=== PATIENT | male | born 1970 | race Caucasian/White ===

== ENCOUNTER 2019-08-08 08:53 | Outpatient (CLI) | payer OTHER, SELFPAY ==
--- NOTE | 2019-08-08 09:00 | CT_ITS ---
WS: [id number] CT scan of the chest With IV contrast, CT scan of the abdomen and pelvis with IV contrast and with oral contrast. Additional two-dimensional coronal and sagittal reconstruction was performed. 0 Clinical Data: ASCENDING COLON CANCER Comparison: CT chest, 08/31/2018, CT chest abdomen and pelvis, 02/09/2018. DLP: 2140.[address] scans at [facility] use at least one of these dose optimization techniques: automat ed exposure control; mA and/or kV adjustment per patient size (includes targeted exams where dose is matched to clinical indication); or iterative reconstruction. Findings: Chest: No nodules, masses or effusions are seen. There are lymph nodes in the subcarinal area unchanged. The lymph node adjacent to the left pulmonary artery is unchanged in size. No new adenopathy is seen. The heart size is normal with no pericardial effusion. Trachea bifurcates normally into the bronchi. The pulmonary arterial system and thoracic aorta demonstrate no abnormalities or dilatations. The com plete loss of vertebral body height at T10 remains the same. Abdomen/pelvis: . The liver, gallbladder, spleen, adrenal glands and pancreas are normal. The kidneys show equal bilateral contrast excretion with no cyst or masses. The abdominal aorta is normal in size. No appendicitis or diverticulitis is seen. No abscess, adenopathy, ascites, mass, obstruction or free air is seen. Oral contrast is in the stomach and small bowel and there is no bowel dilatation. The p atient has had a right hemicolectomy. The bladder is unremarkable. No inguinal hernia is seen. The prostate is enlarged with calcification. The vas deferens is calcified. The bones of the lumbar spine, pelvis, and hips are normal. CT/CT chest abd pel w con* Impression: 1. Negative for new mediastinal or subcarinal adenopathy. 2. Negative for metastatic disease. 3. No change in vertebral body collapse T10 and right hemicolectomy. 4. No acute cardiopulmonary or abdominal pelvic disease is seen.
[2019-08-08] MEDS: iohexol 300 mg/mL 50 mL Btl IV (09:03)
[2019-08-08] MEDS: iohexol 300 mg/mL 100 mL Btl IV (10:54)
[2019-08-08 11:16] LABS: Basophils # 0.1 10^3/uL (0.0-0.1); Basophils % 1.4 %; Eosinophils # 0.3 10^3/uL (0.0-0.8); Eosinophils % 3.3 %; Hematocrit 50.5 % (42.0-52.0); Hemoglobin 16.8 g/dL (11.7-16.6); Lymphocytes # 2.4 10^3/uL (0.8-4.8); Lymphocytes % 30.7 %; Mean Corpuscular HGB Conc 33.3 g/dL (30.0-36.0); Mean Corpuscular Hemoglobin 30.7 pg (28.0-34.0); Mean Corpuscular Volume 92.2 fL (80-94); Mean Platelet Volume 10.4 fL (7.4-10.4); Monocytes # 0.8 10^3/uL (0.2-0.9); Monocytes % 9.5 %; Neutrophils # 4.3 10^3/uL (1.8-7.7); Neutrophils % 54.8 %; Nucleated Red Blood Cells % 0 %; Platelet Count 216 10^3/cmm (130-400); Red Blood Count 5.48 10^6/uL (4.1-5.3); Red Cell Distribution Width 12.5 % (12.1-15.1); White Blood Count 7.9 10^3/uL (4.0-10.0)
[2019-08-08 11:40] LABS: Carcinoembryonic Antigen 1.6 ng/mL (0.0-4.7)
[2019-08-08 11:53] LABS: Alanine Aminotransferase 31 U/L (0-41); Albumin Level 4.7 g/dL (3.5-5.2); Alkaline Phosphatase 80 IU/L (40-130); Anion Gap 18.3 (5-19); Blood Urea Nitrogen 13 mg/dL (6-20); Calcium 9.9 mg/Dl (8.6-10.0); Carbon Dioxide 26 mmol/L (22-29); Chloride 101 mmol/L (98-107); Globulin 3.1 g/dL (1.3-4.6); Glomerular Filtration Rate 103.2 mL/min (90-130); Glucose 101 mg/dL (74-109); Potassium 4.3 mmol/L (3.5-5.1); Sodium 141 mmol/L (136-145); Total Bilirubin 0.5 mg/dL (0.15-1.2); Total Protein 7.8 g/dL (6.6-8.7)
[2019-08-08 11:54] LABS: Aspartate Amino Transferase 28 U/L (0-40)
== END 2019-08-08 08:54 | disposition home or self-care (01) ==
PROVIDERS: Family Provider Nurse Practitioner; Visit Provider Internal Medicine Medical Oncology
DX: C18.2 Malignant neoplasm of ascending colon (principal); Z90.49 Acquired absence of other specified parts of digestive tract
CPT/HCPCS: 71260; 74177; 80053; 82378; 85025

== ENCOUNTER 2019-08-12 08:13 | Outpatient (CLI) | payer OTHER, SELFPAY ==
--- NOTE | 2019-08-12 20:33 | ONC FU_ITS ---
Dr. Bah Patient Follow-Up Note Patient: Daniel Staley Unit #: [id number]: 1970 Dicatated By: Kendell Bah M.D.Date of Visit:Aug 12, 2019 Onc Med Follow-up/Prog Note Chief Complaint: Colon cancer. History of Present Illness: This is a 48 year-old man with moderately differentiated adenocarcinoma of the cecum, stage IIIB (T3, N2b, M0). He had presented with a one month history of abdominal pain and constipation. A CAT scan of abdomen/pelvis on 05/21/2012 showed a small bowel and right colon abnormal appearance. He also had significant abdominal lymphadenopathy. Colonoscopy on 05/24/2012 showed cecal nonobstructive ulcerated mass, on pathology consistent with moderately differentiated infiltrating adenocarcinoma. Pre-operative CEA was 2.4. On 05/31/2012 he underwent right hemicolectomy by Dr. Judd. His surgical pathology revealed a 4.5 cm moderately differentiated adenocarcinoma. Lymphovascular invasion was present. There was involvement in 11 of 15 lymph nodes. PET/CT on 06/22/2012 showed no evidence of distant metastatic disease. His disease was thus stage IIIB (T3, N2b, M0). He received adjuvant chemotherapy with XELOX regimen from 06/28/2012 thru 11/29/2012. The infusion of oxaliplatin resulted in bilateral thrombophlebitis and significant peripheral vein irritation. Port-A-Cath was placed on 07/12/2012. With cycle 7 he had a severe reaction to oxaliplatin with bronchospasm, and further oxaliplatin was discontinued. His treatment was complicated with grade [address] after completion of his treatment on 12/20/2012 showed no evidence of recurrence. CEA 0.7 on 12/27/2012. Port was removed on 01/04/2013. Surveillance colonoscopy at 1 year was negative for malignancy. His medical history is otherwise unremarkable. His prior medical illnesses have been limited to allergic rhinitis. He is a nonsmoker. He does not drink alcohol. INTERIM HISTORY: Surveillance CT of the abdomen/pelvis on 02/14/2017 showed no evidence for recurrent or metastatic disease. There was evidence of severe compression deformity of the T10 vertebral body, unchanged compared to previous studies. His surveillance CT scans on 02/09/2018 showed new subcentimeter mediastinal and hilar lymph nodes and subsegmental atelectasis along the minor fissure. There was only a slight increase in the size and number of lymph nodes from the previous study. A 2 mm nodule in the right posterior upper lobe appeared stable. There was no evidence of recurrent or metastatic disease in the abdomen/pelvis. He continued observation/expectant management. A repeat chest CT on 08/31/2018 showed stable mediastinal and hilar lymph nodes. There was no evidence of metastatic disease. Surveillance CT scans on 08/08/2019 showed no evidence of metastatic disease in the chest, abdomen, or pelvis. There was no change noted in the mediastinal lymph nodes and no change in the appearance of the T10 vertebral body compression. He is seen for a scheduled visit. He has been feeling pretty good generally, though his blood pressure has been running a little high, and they have been checking it at home. Within the past 2 to 3 months he had a flareup of back pain. The pain, though, is in the left lower back/sciatic area, and it radiates down the left leg. He also has been having some pain on the bottom of his left foot. His still working and doing all of his normal activities. He has good appetite. He has no fever or night sweats. He has no shortness of breath, cough, or chest pain. He has no GI complaints other than occasional heartburn. He does not have very good pressure when he voids, but bladder function is otherwise okay. He has no other joint or bone pain. He still has some numbness in his toes from the chemotherapy. Medications: Rhinocort Allergy 1 [place](s) (of 32 mcg/act) Suspension Nasal daily, Singulair 1 Tablet (of 10 mg) Oral daily Allergies: Oxaliplatin Review of Systems: Constitutional - His energy is pretty good generally. He has normal activity, other than his recent back pain. His appetite is good his and weight is stable. No fever, chills, hot flashes, or night sweats. ECOG score is 0, ENMT - He has sinus congestion/drainage. No mouth sores. No sore throat or difficulty swallowing, Hematologic/Lymphatic - No abnormal bruising or bleeding, Respiratory - No shortness of breath. No cough. No pleuritic pain or hemoptysis, Cardiovascular - No angina pain. No palpitations, Gastrointestinal - No nausea or vomiting. He has occasional heartburn. No diarrhea or constipation. No blood in the stool or black stools, Genitourinary (M) - He doesn't have very good pressure, but that isn't new. No dysuria or hematuria. No urinary frequency. No urgency or incontinence, Musculoskeletal - He has lower back pain on the left side. It started getting worse about 2 months ago. It radiates down the left leg. He also has pain on the bottom of his left foot, Integumentary - No skin complications, Neurologic - No headache or dizziness. He has some numbness and tingling in his toes, Psychiatric - No anxiety or depression. No insomnia. Vital Signs: Performed on Aug 12, 2019 08:28 Height - 67.00 in Weight - 209.8 lbs (HIGH) BSA - 2.06 sq.m BMI - 32.86 (HIGH) Temperature - 97.5 F (LOW) Pulse - 79 /min Respiration - 20 /min BP - 149/96 mm(hg) (HIGH) O2 Sat - 97 % Pain - 5 Physical Examination: Constitutional - He looks good generally, Eyes - Sclerae nonicteric. Conjunctivae clear, ENMT - No lesions noted in the oral cavity, Hematologic/Lymphatic - No cervical, clavicular, or axillary adenopathy, Respiratory - Lungs are clear with good air movement bilaterally, Cardiovascular - Heart ryhthm is regular. There is no murmur, gallop, or rub noted, Abdomen - Soft. Liver and spleen are not enlarged. There is no abdominal mass or ascites noted and there is no inguinal adenopathy, Extremities - No edema, Neurologic - No focal neurologic deficits noted. Lab/Imaging: Test performed on Aug 08, 2019 10:30 Glucose 101 mg/dL BUN 13 mg/dL Creatinine 0.8 mg/dL Cr Clearance (Est) 151.42 mL/min Sodium 141 mmol/L Potassium 4.3 mmol/L Chloride 101 mmol/L CO2 26 mmol/L Calcium 9.9 mg/dL Protein, Total 7.8 g/dL Albumin 4.7 g/dL Bilirubin, Total 0.5 mg/dL Alkaline Phosphatase 80 IU/L AST (SGOT) 28 IU/L ALT (SGPT) 31 IU/L WBC 7.9 10^9/L RBC 5.48 10^12/L HGB 16.8 g/dL HCT 50.5 % MCV 92.2 fl MCH 30.7 pg MCHC 33.3 g/dL RDW 12.5 % Platelet Count 216 10^9/L MPV 10.4 fL Neutrophils (Gran) 4.3 10^9/L Lymphocytes 2.4 10^9/L Monocytes 0.8 10^9/L Eosinophils 0.3 10^9/L Basophils 0.1 10^9/L Manual Lymphocytes 30.7 % Manual Monocytes 9.5 % Manual Eosinophils 3.3 % Manual Basophils 1.4 % NRBCs 0.0 /100 WBC CEA 1.6 ng/mL Impression: 1. Patient with moderately differentiated adenocarcinoma of the cecum, stage IIIB (T3, N2b, M0). 2. He underwent right hemicolectomy on 05/31/2012. 3. He was given adjuvant chemotherapy XELOX regimen from 06/28/12 thru 11/29/2012, complicated with grade 2 peripheral neuropathy. He has since then been followed on observation/expectant management. As of his follow-up visit in January 2018 he appeared stable clinically. There were new subcentimeter mediastinal and hilar lymph nodes evident on his CT scan in January 2018. These were felt to most likely be reactive. The lymph nodes appeared stable on a repeat chest CT in August 2018. His current CT scans show no evidence of metastatic disease. He has been having some pain in the left sciatic distribution, and he is planning to have that evaluated at the spine clinic in [place]. He has otherwise been stable from a symptomatic standpoint, but he has developed mild hypertension and he also had evidence of hyperlipidemia on his lipid profile and [place]. He has not had surveillance colonoscopy since 2013. Overall, though, he continues to do well clinically with no evidence of recurrence of the colon cancer. Plan: He will remain on observation/expectant management for the colon cancer. He will be referred to Dr. Judd for surveillance colonoscopy. He will continue his regular follow-up with Ld Ahmadi, and he is encouraged to follow through with her recommendations for treatment of the hypertension and hyperlipidemia. I would recommend that a yearly CEA level be included with his lab studies. However, he should not require any further CT scans for routine surveillance. I will just plan to see him again as needed. Signed By: Kendell Bah M.D. <<Signature on File>>
== END 2019-08-12 08:14 | disposition home or self-care (01) ==
LOC: ONCMED 08:17
PROVIDERS: Family Provider Nurse Practitioner; Visit Provider Internal Medicine Medical Oncology
DX: Z08 Encounter for follow-up examination after completed treatment for malignant neoplasm (principal); Z85.038 Personal history of other malignant neoplasm of large intestine; I10 Essential (primary) hypertension; E78.5 Hyperlipidemia, unspecified; M54.32 Sciatica, left side; Z92.21 Personal history of antineoplastic chemotherapy; Z90.49 Acquired absence of other specified parts of digestive tract
CPT/HCPCS: 99214

== ENCOUNTER 2019-09-19 06:38 | Day surgery (SDC) | payer OTHER, SELFPAY ==
[2019-09-18 09:56] VITALS: BMI 33.2
--- NOTE | 2019-09-19 06:53 | ANES.PREANE2 ---
Pre-Anesthetic Assessment Pre-Anesthetic Assessment: Height/Weight: Height 1.7 m Weight 96.162 kg Preop Diagnosis: hx colon ca Proposed Procedure: Operation Date: 09/19/19 08:00 Proposed Procedures p Colonoscopy(Not Applicable) - Po Judd MD Was Beta Pito taken within 24 hours: N/A Last Intake: 19:00 Social: Social History: No alcohol and No tobacco Exam: Pre-Anes Outpt Exam: alert, oriented x 3, clear to auscultation bilaterally and regular rate & rhythm Airway: Submandibular: WNL Cervical ROM: WNL MP: 2 Dentition: Caps History/ROS: No significant history except as noted Pulmonary: Comments: sinusitis medications CV/HEM: CV/HEM: HTN Comments: does not take his prescribed Lisinopril : : None reported Hepatic: Hepatic: None reported GI: GI: None reported Metabolic: Metabolic: None reported Musc/skel: Musc/skel: Lower Back Pain Neuropsych: Neuropsych: None reported Anesthetic Plan: ASA status: 2 Anesthesia: Anesthesia Evaluation and MAC Risk of > 500 ml blood loss (7ml/kg in children): No PFSH Anesthesia PFSH: Family History (Updated 09/18/19 @ 09:48 by Lorenza Verdugo, MAYLIN) Other Colon cancer Heart disease Social History (Updated 09/18/19 @ 09:51 by Lorenza Verdugo, MAYLIN) Smoking and tobacco status: former smoker Second hand smoke exposure: No Smoking risk assessment/counseling performed?: No Alcohol intake: current Alcohol intake frequency: few times a week Desire information about alcohol rehabilitation?: No Data Anesthesia Cardiac Studies: No Data to Display
[2019-09-19 06:54] VITALS: BP 155/107; PULSE 81; RESP 20; TEMP 36.2; O2SAT 97
[2019-09-19] MEDS: sodium chloride 0.9% 1,000 ML 30 ML (06:59)
--- NOTE | 2019-09-19 08:52 | W.PM.OPSUD ---
Surgery/Procedure H&P Update DATE OF PROCEDURE: September 19, 2019 DATE H&P PERFORMED: 08/27/19 PREOP DIAGNOSIS: hx colon ca PLANNED PROCEDURE: Operation Date: 09/19/19 08:00 Proposed Procedures p Colonoscopy(Not Applicable) - Po Judd MD
[2019-09-19 09:03] VITALS: BP 120/91; PULSE 85; RESP 16; TEMP 36.6; O2SAT 97
--- NOTE | 2019-09-19 09:12 | ANE.PACU2 ---
 Inpatient post-anesthesia follow up: Airway intact: Yes Vital signs: Temperature 97.8 F Pulse Rate 85 Respiratory Rate 16 Blood Pressure 120/91 Pulse Oximetry 97 Oxygen Delivery Me thod Nasal Cannula Oxygen Flow Rate 3 Fraction of Inspir ed Oxygen Hydration adequate: Yes Nausea and vomiting: No Mental status: Baseline
[2019-09-19 09:14] VITALS: BP 134/93; PULSE 93; RESP 18; O2SAT 96
== END 2019-09-19 09:33 | disposition home or self-care (01) ==
PROVIDERS: Family Provider Nurse Practitioner; PCP Nurse Practitioner; Visit Provider Surgery
PROC: 0DJD8ZZ Inspection of Lower Intestinal Tract, Via Natural or Artificial Opening Endoscopic (ICD-10-PCS; CPT 45378; principal; 2019-09-19 08:00)
DX: Z12.11 Encounter for screening for malignant neoplasm of colon (principal); K57.30 Diverticulosis of large intestine without perforation or abscess without bleeding; K64.8 Other hemorrhoids; Z82.49 Family history of ischemic heart disease and other diseases of the circulatory system; Z80.0 Family history of malignant neoplasm of digestive organs; Z85.038 Personal history of other malignant neoplasm of large intestine; I10 Essential (primary) hypertension; Z87.891 Personal history of nicotine dependence
CPT/HCPCS: 12345; 45378; J2001; J2704; J7030

== ENCOUNTER → 2020-03-12 15:34 | Outpatient (BNVA) | payer OTHER, SELFPAY | PROVIDERS: Family Provider Nurse Practitioner; PCP Nurse Practitioner; Visit Provider Nurse Practitioner Family | DX: I10 Essential (primary) hypertension (principal); M54.2 Cervicalgia | CPT/HCPCS: 80053; 80061; 84443; 84550; 85025 ==

== ENCOUNTER → 2020-04-09 16:31 | Outpatient (BNVA) | payer OTHER, SELFPAY | PROVIDERS: Family Provider Nurse Practitioner; PCP Nurse Practitioner; Visit Provider Nurse Practitioner Family | DX: R53.83 Other fatigue (principal); J30.89 Other allergic rhinitis; E78.5 Hyperlipidemia, unspecified; I10 Essential (primary) hypertension; G47.10 Hypersomnia, unspecified | CPT/HCPCS: 82306; 82607; 84403 ==

== ENCOUNTER → 2020-06-01 08:23 | Outpatient (BNVA) | payer OTHER, SELFPAY | PROVIDERS: Family Provider Nurse Practitioner; PCP Nurse Practitioner; Referring Provider Nurse Practitioner Family; Visit Provider Urology | DX: R79.89 Other specified abnormal findings of blood chemistry (principal); Z12.5 Encounter for screening for malignant neoplasm of prostate | CPT/HCPCS: 84403; G0103 ==

== ENCOUNTER → 2020-08-10 14:19 | Outpatient (BNVA) | payer OTHER, SELFPAY | PROVIDERS: Family Provider Nurse Practitioner; PCP Nurse Practitioner; Visit Provider Nurse Practitioner Family | DX: R50.9 Fever, unspecified (principal); Z20.828 Contact with and (suspected) exposure to other viral communicable diseases | CPT/HCPCS: 87400; 87635 ==

== ENCOUNTER → 2020-08-20 10:01 | Outpatient (BNVA) | payer OTHER, SELFPAY | PROVIDERS: Family Provider Nurse Practitioner; PCP Nurse Practitioner; Visit Provider Nurse Practitioner Family | DX: Z20.828 Contact with and (suspected) exposure to other viral communicable diseases (principal) | CPT/HCPCS: 87635 ==

== ENCOUNTER → 2020-08-25 11:00 | Outpatient (BNVA) | payer OTHER, SELFPAY | PROVIDERS: Family Provider Nurse Practitioner; PCP Nurse Practitioner; Visit Provider Nurse Practitioner Family | DX: Z20.828 Contact with and (suspected) exposure to other viral communicable diseases (principal) | CPT/HCPCS: 87635 ==

== ENCOUNTER → 2020-12-02 16:37 | Outpatient (BNVA) | payer OTHER, SELFPAY | PROVIDERS: Family Provider Nurse Practitioner; PCP Nurse Practitioner; Visit Provider Nurse Practitioner | DX: I10 Essential (primary) hypertension (principal); E55.9 Vitamin D deficiency, unspecified; E78.5 Hyperlipidemia, unspecified; K59.00 Constipation, unspecified | CPT/HCPCS: 74018; 80053; 80061; 82306; 85025 ==

== ENCOUNTER → 2021-05-07 09:47 | Outpatient (BNVA) | payer OTHER, SELFPAY | PROVIDERS: Family Provider Nurse Practitioner; PCP Nurse Practitioner; Visit Provider Nurse Practitioner | DX: I10 Essential (primary) hypertension (principal) | CPT/HCPCS: 80053; 80061; 81000 ==

== ENCOUNTER → 2022-09-09 15:18 | Outpatient (BNVA) | payer OTHER, SELFPAY | PROVIDERS: Family Provider Nurse Practitioner; PCP Nurse Practitioner; Visit Provider Nurse Practitioner Family | DX: J02.9 Acute pharyngitis, unspecified (principal) | CPT/HCPCS: 87071; 87880 ==

== ENCOUNTER → 2022-09-27 15:50 | Outpatient (BNVA) | payer OTHER, SELFPAY | PROVIDERS: Family Provider Nurse Practitioner; PCP Nurse Practitioner; Visit Provider Nurse Practitioner | DX: J30.89 Other allergic rhinitis (principal); I10 Essential (primary) hypertension; J45.909 Unspecified asthma, uncomplicated; J98.01 Acute bronchospasm; E78.5 Hyperlipidemia, unspecified | CPT/HCPCS: 80053; 80061; 83036; 85025 ==

== ENCOUNTER 2022-10-13 07:51 | Outpatient (CLI) | payer OTHER, SELFPAY ==
--- NOTE | 2022-10-13 08:02 | CTR_ITS ---
PROCEDURE INFORMATION: Exam: CT Neck With Contrast Exam date and time: 10/13/2022 8:32 AM Age: 52 years old Clinical indication: Pain; Other: Otalgia, unspecified ear TECHNIQUE: Imaging protocol: Computed tomography of the neck with contrast. Radiation optimization: All CT scans at this facility use at least one of these dose optimization techniques: automated exposure control; mA and/or kV adjustment per patient size (includes targeted exams where dose is matched to clinical indication); or iterative reconstruction. Contrast material: OMNI 350; Contrast volume: 100 ml; Contrast route: INTRAVENOUS (IV); REPORTING DATA: Count of CT and Cardiac NM exams in prior 12 months: This patient has received 0 known CTs and 0 known cardiac nuclear medicine studies in the 12 months prior to the current study. COMPARISON: CT chest abdpel w/*[id number] 08/08/2019 11:05 AM RADIATION DOSE METRICS: Total DLP (mGy-cm): 234.81 FINDINGS: Brain: The visible portion of the brain is unremarkable. Mastoid air cells: The mastoid air cells are clear. Auditory system: The external auditory canals are normal bilaterally. Middle ears are clear. Paranasal sinuses: The maxillary sinuses contain mucous retention cysts. There is no mucosal thickening. No air-fluid levels. Pharynx: The nasopharynx is unremarkable. There is no significant pharyngeal tonsillar enlargement. The oropharynx is unremarkable. There is no significant palatine tonsillar enlargement. The hypopharynx is unremarkable. There is no significant lingual tonsillar enlargement. Larynx: The larynx and epiglottis are normal. Prevertebral and retropharyngeal spaces: There is no fluid or edema in the retropharyngeal space. Salivary glands: The parotid glands are normal. The submandibular glands are normal. Thyroid: The thyroid gland is unremarkable. Lymph nodes: There is no cervical or supraclavicular lymphadenopathy. Trachea: The visible portion of the trachea is normal. Lungs: Lung apices are clear. Bones/joints: The visible portion of the skull is intact. Cervical spine and thoracic inlet are unremarkable. No visible spinal stenosis. Vasculature: The carotid and vertebral arteries are unremarkable as visualized. Jugular veins are patent bilaterally. Right is relatively large. There is dehiscence of the jugular bulb on the right. See axial series 3, image 21, sagittal series 7, image 63 and coronal series 6, image 64. The right jugular bulb does not contact the tympanic membrane or ossicles. Soft tissues: Musculature in the neck is unremarkable. No soft tissue edema. CT/CT neck w con* [id number] IMPRESSION: Dehiscent jugular bulb on the right.
[2022-10-13] MEDS: iohexol 350 mg/mL 500 mL Btl (per mL) IV (08:15)
== END 2022-10-13 07:52 | disposition home or self-care (01) ==
PROVIDERS: PCP Nurse Practitioner; Visit Provider Specialist
DX: H92.09 Otalgia, unspecified ear (principal)
CPT/HCPCS: 70491; Q9967

== ENCOUNTER 2022-10-17 16:42 | Outpatient (CLI) | payer OTHER, SELFPAY ==
[2022-10-17 17:44] LABS: Basophils # 0.1 10^3/uL (0.0-0.1); Eosinophils # 0.4 10^3/uL (0.0-0.8); Eosinophils % 4.1 %; Lymphocytes # 3.6 10^3/uL (0.8-4.8); Lymphocytes % 33.9 %; Mean Corpuscular HGB Conc 33.3 g/dL (30.0-36.0); Mean Corpuscular Hemoglobin 30.1 pg (28.0-34.0); Mean Corpuscular Volume 90.4 fl (80-94); Mean Platelet Volume 9.8 fL (7.4-10.4); Monocytes # 1.2 10^3/uL (0.2-0.9); Neutrophils # 5.23 10^3/uL (1.8-7.7); Neutrophils % 49.8 %; Nucleated Red Blood Cells % 0 %; Platelet Count 217 10^3/cmm (130-400); Red Blood Count 5.31 10^6/uL (4.1-5.3); Red Cell Distribution Width 12.9 % (12.1-15.1); White Blood Count 10.5 10^3/uL (4.0-10.0)
[2022-10-17 18:06] LABS: Blood Urea Nitrogen 16 mg/dL (6-20); Calcium 8.7 mg/dL (8.5-10.5); Carbon Dioxide 24 mmol/L (22-29); Chloride 102 mmol/L (98-107); Glomerular Filtration Rate 88.6 mL/min (90-130); Glucose 111 mg/dL (65-115); Osmolality Calculated 288 mOsm/kg (285-295); Sodium 138 mmol/L (136-145)
--- NOTE | 2022-10-17 18:14 | ECG_ITS ---
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 Measurements Intervals [place] Rate: 88 P: 42 [place]: 178 QRS: -3 QRSD: 102 T: 29 QT: 341 QTc: 413 Interpretive Statements SINUS RHYTHM No previous ECG available for comparison Electronically Signed On 10-17-2022 19:29:54 CDT by Louie Lamb M.D. [email or web address]
== END 2022-10-17 16:43 | disposition home or self-care (01) ==
PROVIDERS: PCP Nurse Practitioner; Visit Provider Family Medicine
DX: H92.09 Otalgia, unspecified ear (principal)
CPT/HCPCS: 36415; 80048; 85025; 93005

== ENCOUNTER → 2023-06-29 10:52 | Outpatient (BNVA) | payer OTHER, SELFPAY | PROVIDERS: PCP Nurse Practitioner; Visit Provider Nurse Practitioner Family | DX: J98.8 Other specified respiratory disorders (principal) | CPT/HCPCS: 71046; 85025 ==

== ENCOUNTER 2023-07-14 06:12 | Outpatient (CLI) | payer OTHER, SELFPAY ==
--- NOTE | 2023-07-14 06:30 | USCV_ITS ---
Daniel Staley Age: 52 Gender: M : 1970 Exam Date: 07/14/2023 06:35 Ordering Phys: Celia Powell CLINICAL COUNSELOR-C Technologist: Mina Huffman Exam Location: [facility] [place] Indication: cardiomyopathy BP: 136 / 88 HR: 91 Rhythm: Sinus Technical Quality: Adequate MEASUREMENTS (Male / Female) Normal Values 2D ECHO LVOT Diameter 2.0 cm LV Ejection Fraction MOD 2C 66.9 % LV Ejection Fraction 2C AL 66.2 % LA Diameter 3.4 cm LA Width 3.1 cm LA Height 4.2 cm RA Width 2.7 cm RA Height 3.9 cm Aorta at Sinotubular Diameter 2.5 cm IVC Diameter 1.9 cm M-MODE Aortic Annulus Diameter 2.9 cm LA Ao Ratio MM 1.2 MV E Point Septal Separation 0.3 cm DOPPLER AV Peak Velocity 153.0 cm/s LVOT Peak Velocity 117.0 cm/s AV Area Cont Eq vti 2.6 cm squared AV Area Cont Eq pk 2.4 cm squared MV Peak Velocity 103.0 cm/s MV Area PHT 5.8 cm squared Mitral E to A Ratio 1.1 MV E' Velocity 47.0 cm/s Mitral E to MV E' Ratio 9.2 Mitral E to LV E' Lateral Ratio 8.1 Mitral E to LV E' Septal Ratio 10.6 TR Peak Velocity 193.4 cm/s TR Peak Gradient 15.0 mmHg TR Mean Velocity 149.1 cm/s TR Mean Gradient 10.6 mmHg TR Velocity Time Integral 32.8 cm Right Atrial Pressure 3.0 mmHg Pulmonary Artery Systolic Pressu 18.0 mmHg PV Peak Velocity 153.8 cm/s RV Acceleration Time 0.1 s RV Ejection Time 0.2 s RV AcT/ET 0.5 FINDINGS Left Ventricle Left ventricle is normal size. LV systolic function is normal with EF of 55 to 60%. No regional wall motion abnormalities are seen. Right Ventricle Normal in size and function Right Atrium Normal in size Left Atrium Normal in size Mitral Valve Structurally normal mitral valve. Mild mitral regurgitation. Aortic Valve Structurally normal aortic valve. No significant stenosis or regurgitation. Tricuspid Valve Mild tricuspid regurgitation. Insufficient TR jet to calculate RVSP. Pulmonic Valve Not well-visualized Pericardium Normal Aorta Normal in size IVC Appears to be normal CONCLUSIONS LV systolic function is normal with EF of 55 to 60%. Mild mitral regurgitation Mild tricuspid regurgitation No comparison studies are available Louie Lamb MD (Electronically Signed) Final Date: 15 July 2023 13:27 S
== END 2023-07-14 06:13 | disposition home or self-care (01) ==
LOC: RAD 06:13
PROVIDERS: PCP Nurse Practitioner Family; Visit Provider Nurse Practitioner Family
DX: I42.9 Cardiomyopathy, unspecified (principal); I08.1 Rheumatic disorders of both mitral and tricuspid valves
CPT/HCPCS: 93306

== ENCOUNTER → 2023-07-27 16:10 | Outpatient (BNVA) | payer OTHER, SELFPAY | PROVIDERS: PCP Nurse Practitioner Family; Visit Provider Nurse Practitioner Family | DX: R05.9 Cough, unspecified (principal); J45.901 Unspecified asthma with (acute) exacerbation | CPT/HCPCS: 71046 ==

== ENCOUNTER 2023-11-17 13:48 | Outpatient (CLI) | payer OTHER, SELFPAY ==
--- NOTE | 2023-11-17 15:15 | CT_ITS ---
WS: [id number] CT CHEST, ABDOMEN AND PELVIS WITH CONTRAST HISTORY: Z85.038 - Personal history of other malignant neoplasm, history of partial colectomy. Prior appendectomy and cholecystectomy. TECHNIQUE: Contiguous 5 mm axial imaging performed through the chest, abdomen and pelvis with IV cont rast, oral contrast has been provided. Coronal and sagittal reformats chest. Coronal and sagittal ref ormats through the abdomen and pelvis. All CT scans at [facility] use at least one of these d ose optimization techniques: automated exposure control; mA and/or kV adjustment per patient size (in cludes targeted exams where dose is matched to clinical indication); or iterative reconstruction. CONTRAST: Omnipaque 350; 100 mL IV. DLP: 1311.67 mGy.cm COMPARISON: 08/08/[address]: Lungs are well-aerated. No mass or pneumonia. No pericardial or pleural effusion. Heart is normal size. Lymph node with calcification measures 10 mm along the proximal RIGHT lower lobe bronchu s. No enlarging or new lymph nodes. Small bilateral hilar and para-aortic lymph node. Patient has a k nown 20% biconcave deformity at T10 with lytic changes. No change since 08/08/2019. This may be a reji vertebrae, congenital malformation. Abdomen CT: Normal size liver and spleen. No bile duct dilatation. Normal portal vein. Normal gallbla dder and adrenal glands. Normal pancreas. Mild atherosclerosis aorta. Retroaortic LEFT renal vein. No rmal kidneys. Ventral abdominal wall hernia contains fat only. Stomach is well distended with oral contrast. No small bowel obstruction. RIGHT colectomy. No recurre nt mass at the anastomosis. There are a few scattered diverticula in the distal colon. No acute diver ticulitis. No ascites. No adenopathy. Pelvic CT: Normally distended urinary bladder. Mild prostate gland enlargement into the bladder. Bila teral inguinal canals are patent containing fat only. No new lytic or sclerotic bone lesions. Mild cam deformities at each hip. IMPRESSION: 1. No metastatic disease within the lungs. 2. No adenopathy within the chest, abdomen or pelvis. 3. Status post RIGHT colectomy. No recurrent mass at the anastomosis. 4. No hepatic or adrenal metastasis. 5. No pneumonia. 6. Small ventral abdominal wall hernia.
[2023-11-17] MEDS: iohexol 350 mg/mL 500 mL Btl (per mL) PO (15:25)
[2023-11-17] MEDS: iohexol 350 mg/mL 500 mL Btl (per mL) IV (15:25)
== END 2023-11-17 13:49 | disposition home or self-care (01) ==
LOC: RAD 13:48
PROVIDERS: PCP Nurse Practitioner Family; Visit Provider Nurse Practitioner
DX: Z85.038 Personal history of other malignant neoplasm of large intestine (principal); K43.9 Ventral hernia without obstruction or gangrene; Z90.49 Acquired absence of other specified parts of digestive tract
CPT/HCPCS: 71260; 74177; Q9967

== ENCOUNTER → 2024-02-08 08:08 | Outpatient (BNVA) | payer OTHER, SELFPAY | PROVIDERS: PCP Nurse Practitioner Family; Visit Provider Nurse Practitioner | DX: I10 Essential (primary) hypertension (principal); Z12.5 Encounter for screening for malignant neoplasm of prostate | CPT/HCPCS: 80053; 80061; 84443; G0103 ==

== ENCOUNTER → 2024-08-30 08:31 | Outpatient (BNVA) | payer OTHER, SELFPAY | PROVIDERS: PCP Nurse Practitioner; Visit Provider Nurse Practitioner | DX: I10 Essential (primary) hypertension (principal); R79.89 Other specified abnormal findings of blood chemistry | CPT/HCPCS: 80053; 82378; 84403; 85025 ==

== ENCOUNTER → 2025-03-05 09:08 | Outpatient (BNVA) | payer OTHER, SELFPAY | PROVIDERS: PCP Nurse Practitioner; Visit Provider Nurse Practitioner | DX: I10 Essential (primary) hypertension (principal) | CPT/HCPCS: 80053; 80061; 85025 ==